=== PATIENT | male | born 1990 | race Caucasian/White ===

== ENCOUNTER 2016-12-24 14:10 | Outpatient (CLI) | payer OTHER, BC | END 2016-12-24 14:11 | disposition home or self-care (01) | DX: M77.32 Calcaneal spur, left foot (principal); M77.31 Calcaneal spur, right foot ==

== ENCOUNTER 2017-07-03 22:33 | Emergency (ER) | payer BC, OTHER ==
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
[2017-07-03] MEDS ORDERED: IPRATROPIUM/ALBUTEROL 3 ML NEB INH STA (23:58)
[2017-07-04] MEDS ORDERED: AZITHROMYCIN 250 MG TABLET PO STA (00:01)
[2017-07-04] MEDS ORDERED: predniSONE 20 MG TABLET PO STA (00:01)
[2017-07-04] MEDS ORDERED: AZITHROMYCIN 250 MG TABLET PO ONE (00:23)
[2017-07-04] MEDS ORDERED: predniSONE 20 MG TABLET ONE (00:23)
[2017-07-04] MEDS ORDERED: IPRATROPIUM/ALBUTEROL 3 ML NEB INH ONE (00:26)
[2017-07-04 00:38] VITALS: BP 124/73
== END 2017-07-04 00:48 | disposition home or self-care (01) ==
LOC: ED 22:33
DX: J40 Bronchitis, not specified as acute or chronic (principal); J01.00 Acute maxillary sinusitis, unspecified; F17.200 Nicotine dependence, unspecified, uncomplicated
CPT/HCPCS: 94640; 99283; A9270; J7512; J7620

== ENCOUNTER 2017-10-14 18:28 | Emergency (ER) | payer BC, OTHER ==
[2017-10-14] MEDS ORDERED: CEPHALEXIN 250 MG Prepack 8 PO ONE (20:11)
[2017-10-14] MEDS ORDERED: HYDROcod/ACETAM 5/325 MG TABLET PO STA (20:11)
--- NOTE | 2017-10-14 20:13 | ED Physician Documentation ---
PD HPI SKIN - Stated complaint Stated Complaint: HEAD INFECTION - Chief complaint Chief Complaint: Wound - History obtained from History obtained from: Patient - History of Present Illness Timing - onset: Other (2 days of painful lesions on the scalp associated with low-grade fevers and sore throat.) Review of Systems Constitutional: reports: Fever, Chills Ears: denies: Ear pain Nose: denies: Rhinorrhea / runny nose, Congestion Throat: reports: Sore throat PD PAST MEDICAL HISTORY - Past Medical History Cardiovascular: None Respiratory: Other Neuro: None Endocrine/Autoimmune: None Psych: ADD/ADHD - Past Surgical History Past Surgical History: Yes HEENT: Tonsil/Adenoidectomy - Present Medications Home Medications: Ambulatory Orders Medication Instructions Recorded Confirmed Cephalexin [Keflex] 500 mg PO QID #40 capsule 10/14/17 Meloxicam 7.5 mg PO DAILY PRN 10/14/17 10/14/17 - Allergies Allergies/Adverse Reactions: Allergies Allergy/AdvReac Type Severity Reaction Status Date / Time No Known Drug Allergies Allergy Verified 07/03/17 22:39 - Social History Does the pt smoke?: Yes Smoking Status: Current every day smoker Does the pt drink ETOH?: Yes Does the pt have substance abuse?: No - Immunizations Immunizations are current?: Yes - POLST Patient has POLST: No PD ED PE NORMAL - Vitals Vital signs reviewed: Yes - General General: Alert and oriented X 3, No acute distress - HEENT HEENT: Other (Numerous purulent bullae especially on the right scalp, one was opened and cultured. There are bilateral though suggesting against zoster. Pharynx is normal.) - Neck Neck: Supple, no meningeal sign, No bony TTP - Neuro Neuro: Alert and oriented X 3, Normal speech - Psych Psych: Normal mood, Normal affect Results - Vitals Vitals: Vital Signs - 24 hr 10/14/17 18:37 Temperature 37.3 C Heart Rate 105 H Respiratory 17 Rate Blood Pressure 143/86 H O2 Saturation 97 Oxygen O2 Source Room air Departure - Departure Disposition: Home, Self Care Clinical Impression: Dissecting cellulitis of scalp Condition: Good Record reviewed to determine appropriate education?: Yes Instructions: Cellulitis Dc Prescriptions: Cephalexin [Keflex] 500 mg PO QID #40 capsule Comments: Call your doctor to arrange a follow-up appointment, make the next available appointment. In the interim, return anytime if worse or if new symptoms develop. We are performing a wound culture, the results should be done in 48-72 hours. If antibiotic change is necessary we will call you. Return if worse in the meantime, especially if you develop increased pain, fevers, cannot keep down the medication. Otherwise follow-up with your physician in approximately 2-3 days. Your blood pressure was elevated today on check into the emergency department. This does not mean that you have hypertension, it is a common phenomenon to come to the emergency department and have elevated blood pressure. I recommend that you see your primary care physician within the week to have it rechecked when you are feeling better.
[2017-10-14 20:23] VITALS: BP 112/59
== END 2017-10-14 20:34 | disposition home or self-care (01) ==
LOC: ED 18:28
DX: L03.811 Cellulitis of head [any part, except face] (principal); R03.0 Elevated blood-pressure reading, without diagnosis of hypertension; F17.200 Nicotine dependence, unspecified, uncomplicated
CPT/HCPCS: 87070; 87205; 99283; A9270

== ENCOUNTER 2018-07-22 20:23 | Emergency (ER) | payer BC, OTHER ==
--- NOTE | 2018-07-22 22:11 | XRAY Report ---
Reason: pain when walking after fall earlier today Procedure Date: 07/22/2018 Accession Number: [id number] / [id number] Procedure: XR - Knee 3 View LT CPT Code: FULL RESULT: EXAM: LEFT KNEE RADIOGRAPHY. EXAM DATE: 07/22/2018 09:17 PM. CLINICAL HISTORY: Pain when walking after fall earlier today. . COMPARISON: knee 3 view lateral 12/24/2016 2:46 PM. TECHNIQUE: 3 views. FINDINGS: Bones: Osteochondral injury to the lateral femoral condyle is again seen without significant change. Associated slight irregularity of the articular surface of the lateral tibial plateau is also again seen without significant change. No acute appearing displaced fracture or suspicious lesion demonstrated. Joints: No dislocation. No significant effusion. Soft Tissues: No significant soft tissue swelling. IMPRESSION: Stable appearance of the knee without definite acute abnormality. Osteochondral injury of the lateral femoral condyle is again seen, with a small possible detached ossific fragment. This could account for patient's chronic knee pain. RADIA
--- NOTE | 2018-07-22 22:13 | XRAY Report ---
Reason: Rolled ankle at 1445 today, pain with walking Procedure Date: 07/22/2018 Accession Number: [id number] / [id number] Procedure: XR - Ankle 3 View LT CPT Code: FULL RESULT: EXAM: LEFT ANKLE RADIOGRAPHY. EXAM DATE: 07/22/2018 09:18 PM. CLINICAL HISTORY: Rolled ankle at 1445 today, pain with walking. COMPARISON: None. TECHNIQUE: 3 views. FINDINGS: Bones: No acute displaced fracture or suspicious bony lesion demonstrated. There is a small plantar calcaneal spur. Joints: Ankle mortise appears intact on these nonstressed images. Soft Tissues: No significant soft tissue swelling demonstrated. IMPRESSION: No acute bony abnormality demonstrated. RADIA
--- NOTE | 2018-07-22 22:35 | ED Physician Documentation ---
PD HPI LOWER EXT INJURY - Stated complaint Stated Complaint: ANKLE INJURY - Chief complaint Chief Complaint: Trauma Ext - History obtained from History obtained from: Patient - History of Present Illness PD HPI LOW EXT INJURY LOCATION: Right, Knee, Ankle Type of injury: Fall, Twist (he says he stepped in hole and twisted ankle, then fell due to it, with landing on knee.) Where injury occurred: Home Timing - onset: Today Timing - details: Abrupt onset, Still present Associated symptoms: No: Weakness, Numbness, Swelling Similar symptoms before: No diagnosis (has had knee pains due to arthritis and meniscal problems. No prior ankle problems. Knees were doing better as he lost weight, but he has gained it back a lot.) Review of Systems Skin: denies: Abrasion (s), Laceration (s) Neurologic: denies: Generalized weakness, Focal weakness, Numbness PD PAST MEDICAL HISTORY - Past Medical History Past Medical History: Yes Cardiovascular: None Respiratory: Other Endocrine/Autoimmune: None Psych: ADD/ADHD - Past Surgical History Past Surgical History: Yes HEENT: Tonsil/Adenoidectomy - Present Medications Home Medications: Ambulatory Orders Medication Instructions Recorded Confirmed Meloxicam 7.5 mg PO DAILY PRN 10/14/17 07/22/18 HYDROcod/ACETAM 5/325 [[place] 5/325] 1 tab PO PRN PRN 07/22/18 07/22/18 HYDROcod/ACETAM 5/325 [[place] 5/325] 1 tab PO TID #20 tablet 07/22/18 Naproxen [Naprosyn] 500 mg PO BID PRN #20 tablet 07/22/18 - Allergies Allergies/Adverse Reactions: Allergies Allergy/AdvReac Type Severity Reaction Status Date / Time codeine Allergy Respiratory Verified 07/22/18 21:10 - Social History Does the pt smoke?: Yes Smoking Status: Current every day smoker Does the pt drink ETOH?: Yes Does the pt have substance abuse?: No - Immunizations Immunizations are current?: Yes - POLST Patient has POLST: No PD ED PE NORMAL - Vitals Vital signs reviewed: Yes - General General: Alert and oriented X 3, No acute distress, Well developed/nourished - Back Back: No spinal TTP - Derm Derm: Normal color, Warm and dry - Extremities Extremities: No tenderness to palpate, Normal ROM s pain, Other (right knee with some tnderness anteriorly. No effusion. Right ankle with lateral tenderness and mild swelling. No noted laxity with stress testing. ) Results - Vitals Vitals: Oxygen O2 Source Room air - Rads (name of study) right ankle Radiology: Prelim report reviewed (no fractures. incidiental calcaneal spur) right knee Radiology: Prelim report reviewed (no fracutres) PD MEDICAL DECISION MAKING - ED course Complexity details: reviewed results, considered differential, d/w patient Departure - Departure Disposition: Home, Self Care Clinical Impression: Ankle sprain Qualifiers: Encounter type: initial encounter Involved ligament of ankle: anterior talofibular ligament Laterality: left Qualified Code(s): S93.492A - Sprain of other ligament of left ankle, initial encounter Condition: Stable Record reviewed to determine appropriate education?: Yes Instructions: ED Sprain Ankle W X Ray Follow-Up: Fide Baires PA-C [Primary Care Provider] - Prescriptions: HYDROcod/ACETAM 5/325 [[place] 5/325] 1 tab PO TID #20 tablet Naproxen [Naprosyn] 500 mg PO BID PRN #20 tablet PRN Reason: Pain Comments: He can use her crutches at home for partial weightbearing as needed for comfort. Use the ankle brace when up and around for the next couple weeks until fully better. Ibuprofen or naproxen twice daily for inflammation. Ice elevate and rest the ankle often tonight and tomorrow. Hydrocodone 3 times a day if needed for pain short-term. Follow-up with your primary care if not better over the next week. Discharge Date/Time: 07/22/18 23:18
[2018-07-22] MEDS ORDERED: HYDROcod/ACETAM 5/325 MG TABLET PO STA (22:50)
[2018-07-22] MEDS ORDERED: NAPROXEN 250 MG TABLET PO STA (22:51)
[2018-07-22 23:02] VITALS: BP 134/85
== END 2018-07-22 23:18 | disposition home or self-care (01) ==
LOC: ED 20:23
DX: S93.492A Sprain of other ligament of left ankle, initial encounter (principal); F17.200 Nicotine dependence, unspecified, uncomplicated; X50.1XXA Overexertion from prolonged static or awkward postures, initial encounter; W01.10XA Fall on same level from slipping, tripping and stumbling with subsequent striking against unspecified object, initial encounter; Y92.009 Unspecified place in unspecified non-institutional (private) residence as the place of occurrence of the external cause
CPT/HCPCS: 73562; 73610; 99283; A9270

== ENCOUNTER 2018-08-09 09:21 | Emergency (ER) | payer OTHER ==
--- NOTE | 2018-08-09 10:12 | XRAY Report ---
Reason: cough Procedure Date: 08/09/2018 Accession Number: [id number] / [id number] Procedure: XR - Chest 2 View X-Ray CPT Code: 41351 FULL RESULT: EXAM: CHEST RADIOGRAPHY EXAM DATE: 08/09/2018 09:57 AM. CLINICAL HISTORY: Cough. COMPARISON: 05/18/2010. TECHNIQUE: 2 views. FINDINGS: Lungs/Pleura: Medial bibasilar atelectasis or peribronchial thickening No pleural effusion. No pneumothorax. Normal volumes. Mediastinum: Heart and mediastinal contours are unremarkable. Other: Mild chronic wedging midthoracic vertebral bodies IMPRESSION: Bibasilar atelectasis or bronchitis RADIA
--- NOTE | 2018-08-09 11:00 | ED Physician Documentation ---
History of Present Illness - Stated complaint Stated Complaint: COUGH/CONGESTION/HEADACHE - Chief complaint Chief Complaint: Resp - Additonal information Additional information: hx from pt 27 y/o male to ED CC cough no fever ESPINOZA mylagias post tussive emesis hx bronchitis no travel states he is sually txed with MDI and hydrocodone needs a note for workl Review of Systems Constitutional: denies: Fever, Myalgias Cardiac: denies: Chest pain / pressure Respiratory: reports: Cough GI: reports: Vomiting (post tussive) Musculoskeletal: denies: Extremity swelling PD PAST MEDICAL HISTORY - Past Medical History Past Medical History: Yes Cardiovascular: None Respiratory: Other Endocrine/Autoimmune: None Psych: ADD/ADHD Musculoskeletal: Fibromyalgia - Past Surgical History Past Surgical History: Yes HEENT: Tonsil/Adenoidectomy - Present Medications Home Medications: Ambulatory Orders Medication Instructions Recorded Confirmed Meloxicam 7.5 mg PO DAILY PRN 10/14/17 07/22/18 HYDROcod/ACETAM 5/325 [[place] 5/325] 1 tab PO PRN PRN 07/22/18 07/22/18 HYDROcod/ACETAM 5/325 [[place] 5/325] 1 tab PO TID #20 tablet 07/22/18 Naproxen [Naprosyn] 500 mg PO BID PRN #20 tablet 07/22/18 Albuterol Sulfate [Proair Hfa 2 puffs INH Q4H PRN #1 inhaler 08/09/18 Inhaler] Benzonatate [Tessalon Perle] 100 mg PO TID PRN #20 capsule 08/09/18 guaiFENesin/DEXTROMETHORPHAN 10 ml PO Q6H PRN #120 ml 08/09/18 [Robitussin Dm] - Allergies Allergies/Adverse Reactions: Allergies Allergy/AdvReac Type Severity Reaction Status Date / Time codeine Allergy Respiratory Verified 08/09/18 09:40 - Social History Does the pt smoke?: Yes Smoking Status: Current every day smoker Does the pt drink ETOH?: Yes Does the pt have substance abuse?: No - Immunizations Immunizations are current?: Yes - POLST Patient has POLST: No PD ED PE NORMAL - Vitals Vital signs reviewed: Yes - Neck Neck: Supple, no meningeal sign - Cardiac Cardiac: RRR - Respiratory Respiratory: No respiratory distress, Clear bilaterally - Extremities Extremities: No edema - Neuro Neuro: Alert and oriented X 3 Results - Vitals Vitals: Vital Signs - 24 hr 08/09/18 09:39 Temperature 36.0 C L Heart Rate 94 Respiratory 20 Rate Blood Pressure 145/74 H O2 Saturation 97 Oxygen O2 Source Room air - Rads (name of study) CXR' Radiology: See rad report (no pna, atelectasis and bronchitis) Departure - Departure Disposition: 01 Home, Self Care Clinical Impression: Bronchitis Condition: Good Instructions: ED URI Viral Follow-Up: Fide Baires PA-C [Primary Care Provider] - Prescriptions: Albuterol Sulfate [Proair Hfa Inhaler] 2 puffs INH Q4H PRN #1 inhaler PRN Reason: Shortness Of Air/Wheezing Benzonatate [Tessalon Per[place]] 100 mg PO TID PRN #20 capsule PRN Reason: Cough guaiFENesin/DEXTROMETHORPHAN [Robitussin Dm] 10 ml PO Q6H PRN #120 ml PRN Reason: Cough Forms: Activity restrictions
[2018-08-09 12:34] VITALS: BP 138/71
== END 2018-08-09 11:05 | disposition home or self-care (01) ==
LOC: ED 09:21
DX: J40 Bronchitis, not specified as acute or chronic (principal); F17.200 Nicotine dependence, unspecified, uncomplicated; Z79.1 Long term (current) use of non-steroidal anti-inflammatories (NSAID)
CPT/HCPCS: 71046; 99283

== ENCOUNTER 2020-05-15 06:53 | Emergency (ER) | payer BC, MEDICAID, OTHER ==
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
[2020-05-15] MEDS ORDERED: LACTATED RINGERS 1,000 ML IV STA (07:44)
[2020-05-15] MEDS ORDERED: ALPRAZolam 0.25 MG TABLET PO STA (07:45)
[2020-05-15] MEDS ORDERED: ACETAMINOPHEN 325 MG TABLET PO STA (07:45)
[2020-05-15] MEDS ORDERED: KETOROLAC 30 MG/ML VIAL IVP STA (07:45)
[2020-05-15 08:12] LABS: BASOPHILS # (AUTO) 0.1 10^3/uL (0.0-0.1); BASOPHILS % (AUTO) 0.5 %; EOSINOPHILS # (AUTO) 0.4 10^3/uL (0.0-0.7); EOSINOPHILS % (AUTO) 3.3 %; HGB - HEMOGLOBIN 15.4 g/dL (14.0-18.0); LYMPHOCYTES # (AUTO) 3.8 10^3/uL (1.5-3.5); LYMPHOCYTES % (AUTO) 34.3 %; MEAN CORPUSCULAR HEMOGLOBIN 31.4 pg (27.0-31.0); MEAN CORPUSCULAR HGB CONC 33.8 g/dL (32.0-36.0); MEAN CORPUSCULAR VOLUME 93.1 fL (80.0-94.0); MEAN PLATELET VOLUME 9.5 fL (7.4-11.4); MONOCYTES # (AUTO) 0.7 10^3/uL (0.0-1.0); MONOCYTES % (AUTO) 6.5 %; NEUTROPHILS # (AUTO) 6.1 10^3/uL (1.5-6.6); PLT - PLATELET COUNT 314 10^3/uL (130-450); RED CELL DISTRIBUTION WIDTH 13.2 % (12.0-15.0); WHITE BLOOD COUNT 11.1 x10^3/uL (4.8-10.8)
[2020-05-15 08:29] LABS: ALBUMIN 4.1 g/dL (3.2-5.5); ALBUMIN/GLOBULIN RATIO 1.5 (1.0-2.2); ALKALINE PHOSPHATASE 58 IU/L (42-121); ALT ALANINE AMINOTRANSFERASE 21 IU/L (10-60); AST ASPARTATE AMINOTRANSFERASE 18 IU/L (10-42); BILIRUBIN,TOTAL < 0.2 mg/dL (0.2-1.0); BUN - BLOOD UREA NITROGEN 14 mg/dL (6-20); CALCIUM 8.6 mg/dL (8.5-10.3); CARBON DIOXIDE - CO2 27 mmol/L (21-32); CHLORIDE 102 mmol/L (101-111); CREATININE 0.7 mg/dL (0.6-1.2); GLUCOSE 93 mg/dL (70-100); LIPASE 19 U/L (22-51); MAGNESIUM 2.3 mg/dL (1.7-2.8); SODIUM 138 mmol/L (135-145); TOTAL PROTEIN 6.8 g/dL (6.7-8.2)
--- NOTE | 2020-05-15 08:29 | XRAY Report ---
PROCEDURE: Chest 1 View X-Ray INDICATIONS: possible aspirated hot tub water TECHNIQUE: One view of the chest was acquired. COMPARISON: 10/09/2017 FINDINGS: Surgical changes and devices: None. Lungs and pleura: No pleural effusions or pneumothorax. Lungs are clear. Mediastinum: Mediastinal contours appear normal. Heart size is normal. Bones and chest wall: No suspicious bony lesions. Overlying soft tissues appear unremarkable. IMPRESSION: No evidence acute pulmonary process. Reviewed by: Tra Galvan MD on 05/15/2020 8:28 AM PDT Approved by: Tra Galvan MD on 05/15/2020 8:28 AM PDT Station ID: [id number]
[2020-05-15 09:07] VITALS: BP 111/58
== END 2020-05-15 09:39 | disposition home or self-care (01) ==
LOC: ED 06:53
DX: T68.XXXA Hypothermia, initial encounter (principal); W93.8XXA Exposure to other excessive cold of man-made origin, initial encounter; E86.0 Dehydration; F17.200 Nicotine dependence, unspecified, uncomplicated
CPT/HCPCS: 36415; 71045; 80053; 83690; 83735; 85025; 96361; 96374; 99284

== ENCOUNTER 2020-05-15 13:02 | Outpatient (CLI) | payer MEDICAID | END 2020-05-15 13:03 | disposition EMS.NT | LOC: EMS 13:02 | PROVIDERS: ATTEND Surgery | DX: M79.604 Pain in right leg (principal); V49.9XXA Car occupant (driver) (passenger) injured in unspecified traffic accident, initial encounter; Y92.414 Local residential or business street as the place of occurrence of the external cause ==

== ENCOUNTER 2020-05-15 15:27 | Emergency (ER) | payer OTHER, MEDICAID ==
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
[2020-05-15] MEDS ORDERED: KETOROLAC 60 MG/2 ML VIAL IM STA (16:05)
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
[2020-05-15] MEDS ORDERED: HYDROcod/ACETAM 5/325 MG TABLET PO STA (17:46)
[2020-05-15 17:54] VITALS: BP 137/93
== END 2020-05-15 18:02 | disposition home or self-care (01) ==
LOC: ED 15:27
DX: S06.0X0A Concussion without loss of consciousness, initial encounter (principal); S13.4XXA Sprain of ligaments of cervical spine, initial encounter; M25.512 Pain in left shoulder; V89.2XXA Person injured in unspecified motor-vehicle accident, traffic, initial encounter; Y93.89 Activity, other specified; Y92.410 Unspecified street and highway as the place of occurrence of the external cause; F17.200 Nicotine dependence, unspecified, uncomplicated; T68.XXXA Hypothermia, initial encounter; W93.8XXA Exposure to other excessive cold of man-made origin, initial encounter; E86.0 Dehydration
CPT/HCPCS: 36415; 70450; 71045; 72125; 73030; 73610; 80053; 83690; 83735; 85025; 96361; 96372; 96374; 99284; A9270; J7120

== ENCOUNTER 2021-09-28 08:05 | Emergency (ER) | payer OTHER, MEDICAID ==
[2021-09-28 08:15] VITALS: BP 138/117
--- NOTE | 2021-09-28 08:31 | ED Physician Documentation ---
PD HPI LOWER EXT INJURY - Stated complaint Stated Complaint: FALL - Chief complaint Chief Complaint: Trauma Ext - History obtained from History obtained from: Patient - History of Present Illness PD HPI LOW EXT INJURY LOCATION: Left, Knee Type of injury: Fall, Twist Where injury occurred: Work Timing - onset: Today Timing - duration: Minutes Timing - details: Abrupt onset, Still present Improved by: Rest, Immobilization Worsened by: Moving, Palpating Associated symptoms: Swelling. No: Weakness, Numbness Contributing factors: Work related, Other (prior MCL tear). 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 He is able to bear weight on the right and feels the right is OK. He is not able to bear weight on the left and it feels unstable. He has injured the the left previously with an MCL injury. Review of Systems Constitutional: denies: Fever Respiratory: denies: Cough GI: denies: Vomiting, Diarrhea PD PAST MEDICAL HISTORY - Past Medical History Past Medical History: Yes Cardiovascular: High cholesterol Respiratory: Other Neuro: None Endocrine/Autoimmune: None GI: Other : None HEENT: None Psych: Depression, ADD/ADHD Musculoskeletal: Fibromyalgia Derm: None - Past Surgical History Past Surgical History: Yes HEENT: Tonsil/Adenoidectomy - Present Medications Home Medications: Ambulatory Orders Medication Instructions Recorded Confirmed Pravastatin Sodium 20 mg PO DAILY PM 05/15/20 09/28/21 Albuterol Sulfate [Albuterol 2 puffs IH QID PRN 09/28/21 09/28/21 Sulfate Hfa] Buprenorphine HCl/Naloxone HCl 1 each SL TID 09/28/21 09/28/21 [Buprenorphine-Nalox 8-2Mg Film] clonazePAM [Clonazepam] 0.5 mg PO BID PRN 09/28/21 09/28/21 - Allergies Allergies/Adverse Reactions: Allergies Allergy/AdvReac Type Severity Reaction Status Date / Time codeine Allergy Respiratory Verified 09/28/21 08:10 - Social History Does the pt smoke?: Yes Smoking Status: Current every day smoker Does the pt drink ETOH?: No Does the pt have substance abuse?: No - Immunizations Immunizations are current?: Yes - POLST Patient has POLST: No PD ED PE NORMAL - Vitals Vital signs reviewed: Yes (hypertensive ) - General General: Alert and oriented X 3, Well developed/nourished, Other (appears to be in pain ) - HEENT HEENT: Atraumatic, PERRL, EOMI - Neck Neck: Supple, no meningeal sign - Respiratory Respiratory: No respiratory distress - Derm Derm: Normal color, Warm and dry, No rash - Extremities Extremities: Other (There is pain and swelling to the left knee. An effusion is present and there is tenderness to the medial joint line. The medial space opens with valgus forces. 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, No motor deficit, No sensory deficit, Normal speech Eye Opening: Spontaneous Motor: Obeys Commands Verbal: Oriented GCS Score: 15 - Psych Psych: Normal mood, Normal affect Results - Vitals Vitals: Vital Signs - 24 hr 09/28/21 08:12 Temperature 36.1 C L Heart Rate 80 Respiratory 20 Rate Blood Pressure 138/117 H O2 Saturation 98 Oxygen O2 Source Room air - Rads (name of study) left knee Radiology: Prelim report reviewed (Impression: Small joint effusion, without an acute bony abnormality seen.), EMP read indepedently, See rad report PD MEDICAL DECISION MAKING - ED course Complexity details: reviewed results, re-evaluated patient, considered differential, d/w patient ED course: 31-year-old male with a prior injury to his left medial collateral ligament has sprained his left medial collateral ligament again. He has slipped on the ice and has tenderness to the medial joint line and it opens with valgus forces applied. The patient is placed into a knee immobilizer and instructed to follow-up with orthopedics. Departure - Departure Disposition: 01 Home, Self Care Clinical Impression: Tear of MCL (medial collateral ligament) of knee Qualifiers: Encounter type: initial encounter Laterality: left Qualified Code(s): S83.412A - Sprain of medial collateral ligament of left knee, initial encounter Condition: Stable Instructions: ED Sprain Knee Collateral Ligaments Follow-Up: Luis Miguel Benoit MD [Provider Admit Priv/Credential] - Forms: Activity restrictions Discharge Date/Time: 09/28/21 09:30
--- NOTE | 2021-09-28 08:53 | XRAY Report ---
PROCEDURE: Knee 4 View LT INDICATIONS: MCL sprain/ fall on ice TECHNIQUE: 4 views of the left knee(s) were acquired. COMPARISON: 12/24/2016, 07/22/2018 FINDINGS: Bones: No fractures or dislocations. No suspicious bony lesions. Soft tissues: There is a small joint effusion. No suspicious soft tissue calcifications. IMPRESSION: Small joint effusion, without an acute bony abnormality seen. If it would be helpful for clinical management decision making, please consider a dedicated, schedule d knee MRI for further evaluation (assuming that there is no contraindication). Reviewed by: Ramos Schuler MD on 09/28/2021 7:51 AM [facility] Approved by: Ramos Schuler MD on 09/28/2021 7:51 AM [facility] Station ID: [id number]
== END 2021-09-28 09:30 | disposition home or self-care (01) ==
LOC: ED 08:05
DX: S83.412A Sprain of medial collateral ligament of left knee, initial encounter (principal); W00.0XXA Fall on same level due to ice and snow, initial encounter; Y93.01 Activity, walking, marching and hiking; Y92.238 Other place in hospital as the place of occurrence of the external cause; Y99.0 Civilian activity done for income or pay; F17.200 Nicotine dependence, unspecified, uncomplicated
CPT/HCPCS: 99282; 99283